=== PATIENT | female | born 1940 | race African-American/Black ===

== ENCOUNTER 2018-02-28 15:57 | Emergency (ER) | payer MEDICARE, MEDICAID ==
[~2018-02-28] VITALS: Ht 170.2 cm; Wt 50.8 kg
[2018-02-28 16:13] VITALS: BP 147/91
[2018-02-28] MEDS ORDERED: Tetanus/Diptheria/Pertussis Vaccine 0.5ml Syr IM ONE (16:30)
[2018-02-28] MEDS ORDERED: TYLENOL EXTRA500 MG ORAL (17:29)
[2018-02-28] MEDS ORDERED: Bacitracin Oint UD TOPIC ONE (17:30)
[2018-02-28 17:40] VITALS: BP 157/82
--- NOTE | 2018-02-28 18:03 | Emergency Room Report ---
History of Present Illness General Chief Complaint: Edema Source: Patient Present Illness HPI 77-year-old female presents ED for evaluation. Patient states one week ago she tripped and fell at home landing on her right knee. States is an abrasion to her right knee. States there is now swelling to her right knee and right ankle. Denies any pain. States she is able to walk. Tetanus unknown. Denies any other injuries. Denies hitting her head or LOC. No other aggravating relieving factors. Denies any other associated symptoms Allergies: Coded Allergies: IODINE (Verified Allergy, Unknown, 02/28/18) PSEUDOEPHEDRINE (Verified Allergy, Unknown, 02/28/18) TRIPROLIDINE (Verified Allergy, Unknown, 02/28/18) Patient History Past Medical History: DM, HTN, other - breast ca Past Surgical History: none Pertinent Family History: none Social History: Denies: smoking, alcohol use, drug use Now: No Immunizations: UTD Reviewed Nursing Documentation: PMH: Agreed; PSxH: Agreed Nursing Documentation-PMH Past Medical History: No History, Except For Hx Hypertension: Yes Hx Diabetes: Yes Hx Cancer: Yes - History of breast CA Review of Systems All Other Systems: negative except mentioned in HPI Physical Exam Vital Signs Date Time Temp Pulse Resp B/P (MAP) Pulse Ox O2 Delivery O2 Flow Rate FiO2 02/28/18 16:03 98.6 94 18 147/91 96 Room Air 98.6 Sp02 EP Interpretation: reviewed, normal General Appearance: no apparent distress, alert, GCS 15, non-toxic Head: normocephalic, atraumatic Eyes: bilateral eye normal inspection, bilateral eye PERRL ENT: hearing grossly normal, normal pharynx, no angioedema, normal voice Neck: full range of motion, supple/symm/no masses Respiratory: chest non-tender, lungs clear, normal breath sounds, speaking full sentences Cardiovascular #1: regular rate, rhythm, no edema Cardiovascular #2: 2+ carotid (R), 2+ carotid (L), 2+ radial (R), 2+ radial (L) , 2+ dorsalis pedis (R), 2+ dorsalis pedis (L) Gastrointestinal: normal bowel sounds, non tender, soft, non-distended, no guarding, no rebound Rectal: deferred Genitourinary: normal inspection, no CVA tenderness Musculoskeletal: back normal, gait/station normal, normal range of motion, non- tender, swelling - R knee, R ankle Neurologic: alert, oriented x3, responsive, motor strength/tone normal, sensory intact, speech normal Psychiatric: judgement/insight normal, memory normal, mood/affect normal, no suicidal/homicidal ideation Reflexes: 3+ bicep (R), 3+ bicep (L), 3+ tricep (R), 3+ tricep (L), 3+ knee (R) , 3+ knee (L) Skin: normal color, no rash, warm/dry, well hydrated, abrasions - R knee Lymphatic: no adenopathy Procedures Splinting Splinting : Consent: Verbal Pre-Made Type: YEHUDA wrap Pre-Proc Neuro Vasc Exam: normal Post-Proc Neuro Vasc Exam: normal Patient Tolerated: Well Complications: None Medical Decision Making Diagnostic Impression: Primary Impression: Knee injury Qualified Codes: S89.91XA - Unspecified injury of right lower leg, initial encounter Additional Impression: Right ankle injury Qualified Codes: S99.911A - Unspecified injury of right ankle, initial encounter ER Course Hospital Course 77-year-old F presents to ED complaining of R knee and ankle swelling s/p fall x 1 week. no pain Differential diagnoses include: Fracture, dislocation, sprain, contusion Clinical course Patient placed on stretcher. After initial history and physical, I ordered TDAP , xrays of R ankle/foot/knee X-rays of right knee show significant osteoarthritis. No fracture. [facility] read possible nondisplaced fracture proximal fifth phalanx on right foot. Patient has no tenderness in that area. Full range of motion. There is no erythema or induration suggestive of cellulitis. There is no calf tenderness or swelling suggestive of DVT. Discussed findings with patient. Bacitracin applied. Placed in Yehuda wrap. Recommend ice and elevation at home. Close follow-up with PMD Diagnosis - knee injury, R ankle injury Stable and discharged to home with prescription for Tylenol. apply ice, keep elevated. weight bear as tolerated. Followup with PMD. Return to ED if symptoms recur or worsen Other X-Ray Diagnostic Results Other X-Ray Diagnostic Results #1: X-Ray ordered: R knee # of Views/Limited Vs Complete: 3 View Indication: Pain EP Interpretation: Yes Interpretation: no dislocation, no soft tissue swelling, no fractures, other - DJD Impression: No acute disease Electronically Signed by: Electronically signed by Efrem Murray MD Other X-Ray Diagnostic Results #2: X-Ray ordered: R ankle # of Views/Limited Vs Complete: 3 View Indication: Swelling EP Interpretation: Yes Interpretation: no dislocation, no fractures, nonspecific bowel gas, other - soft tissue swelling Impression: No acute disease Electronically Signed by: Electronically signed by Efrem Murray MD Other X-Ray Diagnostic Results #3: X-Ray ordered: R foot # of Views/Limited Vs Complete: 3 View Indication: Pain EP Interpretation: Yes Interpretation: no dislocation, no fractures, other - soft tissue swelling Impression: No acute disease Electronically Signed by: Electronically signed by Efrem Murray MD Last Vital Signs Date Time Temp Pulse Resp B/P (MAP) Pulse Ox O2 Delivery O2 Flow Rate FiO2 02/28/18 17:40 98.0 92 20 157/82 100 Room Air 98.6 Status: improved Disposition: HOME, SELF-CARE Condition: Stable Scripts Acetaminophen* (TYLENOL EXTRA STRENGTH*) 500 Mg Tablet 500 MG ORAL Q8H PRN for Prn Headache/Temp > 101, #30 TAB 0 Refills Prov: Efrem Murray MD 02/28/18 Patient Instructions: Edema, Knee Pain, [id number] Additional Instructions: apply ice, elevate, take tylenol as needed for pain. followup with PMD. Efrem Murray MD Feb 28, 2018 18:03
--- NOTE | 2018-03-02 08:51 | Diagnostic Imaging Report ---
Indication: Pain and swelling Technique: 3 views of the right knee Comparison: None Findings: There is medial compartment degenerative joint space narrowing. There is equivocally minimal suprapatellar effusion. There is patellofemoral compartment degenerative joint space narrowing. There are likely loose bodies in the anterior joint space. No acute fractures. No dislocations. There are medial and lateral osteophytes. The bones are osteoporotic Impression: Degenerative changes as described. No acute bony trauma Probable loose bodies Equivocal minimal joint effusion This agrees with the preliminary interpretation provided overnight by [facility] teleradiology service.
--- NOTE | 2018-03-02 08:52 | Diagnostic Imaging Report ---
Indication: Pain and swelling Technique: 3 views of the right ankle Comparison: none Findings: Bones are osteoporotic. No acute fractures. No dislocations. There is minimal swelling over the lateral malleolus. The joint spaces are preserved. There are vascular calcifications Impression: No acute bony trauma This agrees with the preliminary interpretation provided overnight by [facility] telerad[facility] service.
--- NOTE | 2018-03-02 08:57 | Diagnostic Imaging Report ---
. Indication: Pain and swelling Technique: 3 views right foot Comparison: none Findings: There is mild irregularity of the base of the fourth proximal phalanx, may be degenerative or on the basis of old injury, does not appear to be acute. Equivocal lucency through the base of the fifth proximal phalanx on the AP view, not visible on other views, could represent a subtle nondisplaced fracture. No definite acute fractures otherwise. No dislocations. There is hallux valgus, bunion formation, and metatarsus adductus. Impression: Questionable fracture of the base of the fifth proximal phalanx. Correlate with clinical findings This agrees with the preliminary interpretation provided overnight by [facility] teleradiology service.
== END 2018-02-28 17:40 | disposition home or self-care (01) ==
LOC: EMR 16:51
DX: S89.91XA Unspecified injury of right lower leg, initial encounter (principal); S99.911A Unspecified injury of right ankle, initial encounter; E11.9 Type 2 diabetes mellitus without complications; I10 Essential (primary) hypertension; M17.10 Unilateral primary osteoarthritis, unspecified knee; Z23 Encounter for immunization; Z91.048 Other nonmedicinal substance allergy status; Z88.3 Allergy status to other anti-infective agents; Z88.8 Allergy status to other drugs, medicaments and biological substances; Z85.3 Personal history of malignant neoplasm of breast
CPT/HCPCS: 90471; 90715; 99284

== ENCOUNTER 2019-05-29 07:08 | Inpatient (IN) | payer MEDICARE, MEDICAID ==
[2019-05-29] VITALS (7 sets, daily range): BP systolic 120–215; BP diastolic 72–103
[~2019-05-29] VITALS: Ht 170.2 cm; Wt 69.4 kg
[~2019-05-29 07:08] MED LIST: TYLENOL EXTRA500 MG ORAL
[2019-05-29] MEDS ORDERED: Nitroglycerin 2% oint pkt TOPIC ONE (07:30)
--- NOTE | 2019-05-29 07:30 | Emergency Room Report ---
History of Present Illness General Chief Complaint: Chest Pain Source: Patient, Medical Record Present Illness HPI 78-year-old female history of breast cancer in remissionafter mastectomy, history of hypertension, diabetes, unknown family history of cardiac disease presents with left-sided chest discomfort no aggravating relieving factors severity is mild, constant no dyspnea on exertion, she does feel mildly short of breath, no diaphoresis no nausea no vomiting patient has not had a recent stress test, or cath, patient presents for continued chest pain patient presents for evaluation Allergies: Coded Allergies: IODINE (Verified Allergy, Unknown, 02/28/18) PSEUDOEPHEDRINE (Verified Allergy, Unknown, 02/28/18) TRIPROLIDINE (Verified Allergy, Unknown, 02/28/18) Patient History Past Medical History: see triage record Reviewed Nursing Documentation: PMH: Agreed; PSxH: Agreed Nursing Documentation-PMH Past Medical History: No History, Except For Hx Hypertension: Yes Hx Diabetes: Yes Hx Cancer: Yes - History of breast CA Review of Systems All Other Systems: negative except mentioned in HPI Physical Exam Vital Signs Date Time Temp Pulse Resp B/P (MAP) Pulse Ox O2 Delivery O2 Flow Rate FiO2 05/29/19 07:13 98.4 99 18 223/109 (147) 100 Room Air Sp02 EP Interpretation: reviewed, normal General Appearance: well appearing, no apparent distress, alert Head: normocephalic, atraumatic Eyes: bilateral eye PERRL, bilateral eye EOMI ENT: uvula midline, moist mucus membranes Neck: supple, thyroid normal, supple/symm/no masses Respiratory: lungs clear, no respiratory distress, no retraction, no accessory muscle use Cardiovascular #1: normal peripheral pulses, regular rate, rhythm, no edema, no gallop, no murmur Gastrointestinal: non tender, soft, no guarding, no rebound Musculoskeletal: normal inspection Neurologic: alert, oriented x3 Psychiatric: mood/affect normal Skin: no rash, warm/dry Medical Decision Making Diagnostic Impression: Primary Impression: Chest pain Qualified Codes: R07.9 - Chest pain, unspecified ER Course 78-year-old female presents with chest pain concerning for possible ACS differential diagnosis includes pneumonia, acs, dissection Patient given aspirin, and nitro with improvement in pain Will admit patient for ACS work-up to Dr. Liang 9:28AM Laboratory Tests Test 05/29/19 07:30 White Blood Count 5.3 K/UL (4.8-10.8) Red Blood Count 4.68 M/UL (4.20-5.40) Hemoglobin 13.5 G/DL (12.0-16.0) Hematocrit 41.2 % (37.0-47.0) Mean Corpuscular Volume 88 FL (80-99) Mean Corpuscular Hemoglobin 28.8 PG (27.0-31.0) Mean Corpuscular Hemoglobin Concent 32.6 G/DL (32.0-36.0) Red Cell Distribution Width 11.9 % (11.6-14.8) Platelet Count 277 K/UL (150-450) Mean Platelet Volume 6.2 FL (6.5-10.1) L Neutrophils (%) (Auto) 64.2 % (45.0-75.0) Lymphocytes (%) (Auto) 21.7 % (20.0-45.0) Monocytes (%) (Auto) 8.1 % (1.0-10.0) Eosinophils (%) (Auto) 4.7 % (0.0-3.0) H Basophils (%) (Auto) 1.3 % (0.0-2.0) Prothrombin Time 10.3 SEC (9.30-11.50) Prothrombin Time INR 1.0 (0.9-1.1) PTT 26 SEC (23-33) Sodium Level 140 MMOL/L (136-145) Potassium Level 3.7 MMOL/L (3.5-5.1) Chloride Level 104 MMOL/L (98-107) Carbon Dioxide Level 34 MMOL/L (21-32) H Anion Gap 3 mmol/L (5-15) L Blood Urea Nitrogen 10 mg/dL (7-18) Creatinine 0.7 MG/DL (0.55-1.30) Estimate Glomerular Filtration Rate mL/min (>60) Glucose Level 144 MG/DL (74-106) H Calcium Level 8.8 MG/DL (8.5-10.1) Total Bilirubin 0.3 MG/DL (0.2-1.0) Aspartate Amino Transferase (AST) 17 U/L (15-37) Alanine Aminotransferase (ALT) 19 U/L (12-78) Alkaline Phosphatase 66 U/L (46-116) Troponin I 0.024 ng/mL (0.000-0.056) Pro-B-Type Natriuretic Peptide 328 pg/mL (0-125) H Total Protein 7.8 G/DL (6.4-8.2) Albumin 3.3 G/DL (3.4-5.0) L Globulin 4.5 g/dL Albumin/Globulin Ratio 0.7 (1.0-2.7) L Lipase 225 U/L (73-393) EKG Diagnostic Results EKG Time: 07:19 EP Interpretation: NSR, rate 78, QTc 446, no acute ST elevations, left axis deviation Rhythm Strip Diag. Results Rhythm Strip Time: 07:30 EP Interpretation: yes Rate: 71 Rhythm: NSR, no PVC's, no ectopy Chest X-Ray Diagnostic Results Chest X-Ray Diagnostic Results : Chest X-Ray Ordered: Yes # of Views/Limited/Complete: 1 View Indication: Chest Pain EP Interpretation: Yes Interpretation: no consolidation, no effusion, no pneumothorax, no acute cardiopulmonary disease Impression: No acute disease Electronically Signed by: Seferino Chowdhury MD Last Vital Signs Date Time Temp Pulse Resp B/P (MAP) Pulse Ox O2 Delivery O2 Flow Rate FiO2 05/29/19 07:13 98.4 99 18 223/109 (147) 100 Room Air Disposition: ADMITTED INPATIENT Condition: Stable Referrals: [facility],REFERRING (PCP) Seferino Chowdhury MD May 29, 2019 07:30
[2019-05-29] MEDS ORDERED: TRESIBA100 UNIT/1 SQ (07:39)
[2019-05-29] MEDS ORDERED: TRAMADOL HCL50 MG ORAL (07:39)
[2019-05-29] MEDS ORDERED: HUMALOG100 UNIT/4 SUBQ (07:39)
[2019-05-29] MEDS ORDERED: ANASTROZOLE1 MG PO (07:39)
[2019-05-29] MEDS ORDERED: ASPIRIN EC325 MG ORAL (07:39)
[2019-05-29] MEDS ORDERED: BUSPIRONE HCL5 M1 ORAL (07:39)
[2019-05-29] MEDS ORDERED: AMLOD-VALSA-HC1 EAC4 PO (07:39)
[2019-05-29] MEDS ORDERED: BACLOFEN10 MG ORAL (07:39)
[2019-05-29 07:46] LABS: BASOPHILS % (AUTO) 1.3 % (0.0-2.0); EOSINOPHILS % (AUTO) 4.7 % (0.0-3.0); HEMATOCRIT 41.2 % (37.0-47.0); HEMOGLOBIN 13.5 G/DL (12.0-16.0); LYMPHOCYTES % (AUTO) 21.7 % (20.0-45.0); MEAN CORPUSCULAR VOLUME 88 FL (80-99); MONOCYTES % (AUTO) 8.1 % (1.0-10.0); NEUTROPHILS % (AUTO) 64.2 % (45.0-75.0); PLATELET COUNT 277 K/UL (150-450); RED BLOOD COUNT 4.68 M/UL (4.20-5.40); RED CELL DISTRIBUTION WIDTH 11.9 % (11.6-14.8); WHITE BLOOD COUNT 5.3 K/UL (4.8-10.8)
--- NOTE | 2019-05-29 07:51 | Diagnostic Imaging Report ---
EXAM: XR Chest, 1 View CLINICAL HISTORY: CP TECHNIQUE: Frontal view of the chest. COMPARISON: No relevant prior studies available. FINDINGS: Lungs: Bibasilar atelectasis. Mild pulmonary vascular congestion. Pleural space: Unremarkable. No pneumothorax. Heart: Heart size appears enlarged, possibly exaggerated due to technique. Mediastinum: Unremarkable. Bones/joints: Degenerative changes of the spine. IMPRESSION: 1. Heart size appears enlarged, possibly exaggerated due to technique. 2. Bibasilar atelectasis. Mild pulmonary vascular congestion.
[2019-05-29] MEDS ORDERED: Lexiscan 0.4mg/5ml syringe IV ONE (08:00)
[2019-05-29] MEDS ORDERED: Losartan 25mg tab ORAL ONE (08:00)
[2019-05-29 08:06] LABS: ANION GAP 3 mmol/L (5-15); BLOOD UREA NITROGEN 10 mg/dL (7-18); CALCIUM 8.8 MG/DL (8.5-10.1); CARBON DIOXIDE 34 MMOL/L (21-32); CHLORIDE 104 MMOL/L (98-107); CREATININE 0.7 MG/DL (0.55-1.30); POTASSIUM 3.7 MMOL/L (3.5-5.1); SODIUM 140 MMOL/L (136-145)
[2019-05-29 08:16] LABS: ALANINE AMINOTRANSFERASE 19 U/L (12-78); ALBUMIN 3.3 G/DL (3.4-5.0); ALBUMIN/GLOBULIN RATIO 0.7 (1.0-2.7); ALKALINE PHOSPHATASE 66 U/L (46-116); ASPARTATE AMINO TRANSFERASE 17 U/L (15-37); BILIRUBIN,TOTAL 0.3 MG/DL (0.2-1.0)
[2019-05-29] MEDS ORDERED: Labetalol 5mg/ml 20ml vial IV ONE (09:30)
[2019-05-29] MEDS ORDERED: traMADol 50mg tab ORAL PRN (11:30)
[2019-05-29] MEDS: NovoLOG Insulin Flexpen SUBQ SCH ×3 (12:09→20:16)
--- NOTE | 2019-05-29 15:45 | History and Physical Report ---
DATE OF ADMISSION: 05/29/2019 HISTORY OF PRESENT ILLNESS: This is a 78-year-old female with a history of breast cancer status post mastectomy in 2013. She came to the hospital with left-sided chest discomfort. On my questioning, the patient is a very poor historian and she obtains her history from her daughter who is at bedside. She denies any diaphoresis. No nausea. No emesis. She states she has mild discomfort which started yesterday. ALLERGIES: Iodine, pseudoephedrine, triprolidine. PAST MEDICAL HISTORY: Notable for hypertension, diabetes mellitus, breast CA status post mastectomy. HOME MEDICATIONS: Reviewed and reconciled in the chart. REVIEW OF SYSTEMS: Denies any headaches, hematemesis, melena, or hematochezia. PHYSICAL EXAMINATION: GENERAL: Reveals an elderly female. HEENT: Unremarkable. LUNGS: Clear breath sounds bilaterally with normal heart sounds. ABDOMEN: Soft. EXTREMITIES: There is no edema. NEUROLOGIC: Nonfocal. VITAL SIGNS: Blood pressure 160/100, heart rate 84, respiratory rate , afebrile. LABORATORY AND DIAGNOSTIC DATA: CBC and BMP is unremarkable except for glucose of 144, creatinine of 0.7. Troponin 0.02. Coags are negative. X-ray chest per report is negative as well except for atelectasis. IMPRESSION: 1. Chest pain, atypical. 2. Troponin leak. 3. Hypertension, uncontrolled. 4. History of breast CA . DISCUSSION: Continue home medications including medicines for diabetes. We will add further antihypertensives. Consult Cardiology. We will follow carefully, serial troponins. Charles Liang M.D. DR: Laura JOB#: [id number] CC:
[2019-05-29] MEDS: Heparin 5000 units/ml inj SUBQ SCH (17:10)
[2019-05-29] MEDS ORDERED: BusPIRone 5mg Tab ORAL PRN (18:00)
[2019-05-29] MEDS ORDERED: BusPIRone 5mg Tab ORAL SCH (18:00)
[2019-05-29] MEDS ORDERED: Lexiscan 0.4mg/5ml syringe IV PRN (21:30)
[2019-05-29 22:46] LABS: ALANINE AMINOTRANSFERASE 16 U/L (12-78); ALBUMIN 2.6 G/DL (3.4-5.0); ALBUMIN/GLOBULIN RATIO 0.7 (1.0-2.7); ALKALINE PHOSPHATASE 58 U/L (46-116); ANION GAP 7 mmol/L (5-15); ASPARTATE AMINO TRANSFERASE 15 U/L (15-37); BILIRUBIN,TOTAL 0.4 MG/DL (0.2-1.0); BLOOD UREA NITROGEN 11 mg/dL (7-18); CALCIUM 8.3 MG/DL (8.5-10.1); CARBON DIOXIDE 27 MMOL/L (21-32); CHLORIDE 102 MMOL/L (98-107); CREATININE 0.8 MG/DL (0.55-1.30); POTASSIUM 3.9 MMOL/L (3.5-5.1); SODIUM 136 MMOL/L (136-145)
--- NOTE | 2019-05-29 23:30 | Consultation ---
DATE OF CONSULTATION: 05/29/2019 CARDIOLOGY CONSULTATION CONSULTING PHYSICIAN: Radames Valencia M.D. REQUESTING PHYSICIAN: Charles Liang M.D. REASON FOR CONSULTATION: Chest pain. HISTORY OF PRESENT ILLNESS: This is a 78-year-old female with multiple risk factors for accelerated coronary artery disease. She was awakened from sleep around 5 a.m. with discomfort in her chest. She described as a heavy pain, but cannot be more specific. She does not recall any previous such symptoms and is unaware of any history of prior heart attack. The patient did not have any diaphoresis, nausea, or vomiting, but did feel some shortness of breath. She was seen in the emergency room and notes that the pain had to her recollection resolved prior to arrival. PAST MEDICAL HISTORY: Includes hypertension, type 2 diabetes mellitus, hyperlipidemia, and breast cancer with left mastectomy. MEDICATIONS: Reviewed and reconciled. ALLERGIES: Include iodine, pseudoephedrine, and triprolidine. FAMILY HISTORY: Noncontributory. SOCIAL HISTORY: Negative for smoking, alcohol, or substance abuse. REVIEW OF SYSTEMS: No fevers or chills. No recent upper respiratory infection. No history of asthma or abnormal blood clotting. No history of seizure or stroke. Her diabetes is managed with diet and oral pills. She takes a cholesterol pill as well. There is no history of thyroid disease. She has not noted any change in bowel habits. She denies dyspepsia or reflux, and is unaware of any difficulty voiding or any dysuria. She does not recall when her mastectomy exactly was, but "many years ago." PHYSICAL EXAMINATION: VITAL SIGNS: Blood pressure 179/90 in the emergency room and presently 120/72, heart rate 72, respiratory rate 18, and afebrile. HEENT: Conjunctivae are pink. Sclerae are anicteric. Oropharynx clear. No xanthoma. NECK: Supple. No jugular venous distention or bruits. Carotid upstrokes are without delay. BREASTS: Left mastectomy site clean and dry with no adenopathy. LUNGS: Clear. CARDIAC: Regular rhythm and rate. Normal S1 and S2 with a fourth heart sound. ABDOMEN: Soft and nontender. EXTREMITIES: Good pulses. No edema. NEUROLOGIC: Nonfocal. LABORATORY AND DIAGNOSTIC DATA: White count 5.3 and hemoglobin 13.5. Potassium 3.7, BUN 10, creatinine 0.7, and glucose 144. Pro-natriuretic peptide 328. Albumin 3.3. Troponin #1 0.024, troponin #2 0.036. Chest x-ray with no acute process. EKG with sinus rhythm, 71 beats per minute, nonspecific ST change, and no acute abnormality. IMPRESSION: 1. Chest pain episode. 2. Minimally elevated troponin levels, but did not reach threshold for infarction. 3. Possible acute coronary syndrome. 4. Hypertensive heart disease with elevated blood pressure on presentation, now well controlled. 5. Mildly elevated natriuretic peptide assay suggesting diastolic dysfunction due to hypertensive heart disease. 6. Minimal protein-calorie malnutrition. 7. Type 2 diabetes mellitus with minimally elevated glucose level. PLAN: 1. Cardiac monitoring. 2. Followup troponin level. 3. Lipid panel. 4. Antiplatelet therapy. 5. Topical nitrates. 6. Noninvasive assessment of coronary flow reserve. Recurring chest pain will be treated with beta-blockade EKG to identify ischemia. Radames Valencia M.D. DR: SARAI JOB#: [id number] CC:
[2019-05-30] VITALS: BP 123/74
[2019-05-30 04:00] VITALS: BP 154/71
[2019-05-30] MEDS: NovoLOG Insulin Flexpen SUBQ SCH ×3 (06:30→16:20)
[2019-05-30 08:00] VITALS: BP_SYST 146; BP_DIAS 56; BP_DIAS 90
[2019-05-30 08:21] LABS: CHOLESTEROL 232 MG/DL (< 200); HDL CHOLESTEROL 81 MG/DL (40-60); TRIGLYCERIDES 52 MG/DL (30-150)
[2019-05-30] MEDS ORDERED: VALSARTAN 320 MG ORAL SCH (09:00)
[2019-05-30] MEDS ORDERED: TRESIBA SUBQ SCH (09:00)
[2019-05-30] MEDS ORDERED: VIT D2 1.25 MG ORAL SCH (09:00)
[2019-05-30] MEDS ORDERED: Aspirin EC 325mg tab ORAL SCH (09:00)
[2019-05-30] MEDS ORDERED: Anastrazole 1mg tab ORAL SCH (09:00)
[2019-05-30] MEDS: Heparin 5000 units/ml inj SUBQ SCH ×2 (09:20→17:28)
--- NOTE | 2019-05-30 09:22 | Pulmonology Progress Note ---
Assessment/Plan Assessment/Plan IMPRESSION: 1. Chest pain, atypical. 2. Troponin leak. 3. Hypertension, uncontrolled. 4. History of breast CA . DISCUSSION: Continue home medications including medicines for diabetes. BP better controlled. Seen by Cardiology. Stress test today. Subjective Interval Events: Nopne new Constitutional: Reports: no symptoms HEENT: Repors: no symptoms Respiratory: Reports: no symptoms Cardiovascular: Reports: no symptoms Gastrointestinal/Abdominal: Reports: no symptoms Genitourinary: Reports: no symptoms Allergies: Coded Allergies: IODINE (Verified Allergy, Unknown, 02/28/18) PSEUDOEPHEDRINE (Verified Allergy, Unknown, 02/28/18) TRIPROLIDINE (Verified Allergy, Unknown, 02/28/18) Objective Last 24 Hour Vital Signs Date Time Temp Pulse Resp B/P (MAP) Pulse Ox O2 Delivery O2 Flow Rate FiO2 05/30/19 08:06 Room Air 05/30/19 08:00 98.4 72 20 146/90 (108) 97 05/30/19 04:00 71 05/30/19 04:00 98.1 60 16 154/71 (98) 96 05/30/19 00:00 72 05/30/19 00:00 97.9 65 17 123/74 (90) 97 05/29/19 21:00 Room Air 05/29/19 20:00 97.7 60 16 120/78 (92) 96 05/29/19 20:00 68 05/29/19 16:00 73 05/29/19 16:00 98.2 72 18 120/72 (88) 97 05/29/19 13:39 Room Air 05/29/19 12:00 97.0 80 18 157/93 (114) 98 05/29/19 12:00 81 05/29/19 11:55 157/93 05/29/19 11:00 97.5 83 18 179/90 (119) 98 83 05/29/19 10:59 77 05/29/19 10:20 98.1 80 18 172/82 98 Room Air 05/29/19 09:55 98.1 75 15 172/81 100 Room Air 05/29/19 09:38 78 233/133 05/29/19 09:37 230/133 Intake and Output 05/29/19 05/30/19 18:59 06:59 Intake Total 315 ml 600 ml Balance 315 ml 600 ml Intake Oral 315 ml 600 ml # Voids 2 4 # Bowel Movements 1 General Appearance: no acute distress HEENT: normocephalic Respiratory/Chest: lungs clear Cardiovascular: regular rhythm Abdomen: normal bowel sounds Laboratory Tests 05/29/19 15:05: Troponin I 0.036 05/29/19 22:00: Sodium Level 136, Potassium Level 3.9, Chloride Level 102, Carbon Dioxide Level 27, Anion Gap 7, Blood Urea Nitrogen 11, Creatinine 0.8, Estimat Glomerular Filtration Rate , Glucose Level 390#H, Calcium Level 8.3L, Total Bilirubin 0.4, Aspartate Amino Transf (AST/SGOT) 15, Alanine Aminotransferase (ALT/SGPT) 16, Alkaline Phosphatase 58, Total Protein 6.5, Albumin 2.6L, Globulin 3.9, Albumin/ Globulin Ratio 0.7L, Thyroid Stimulating Hormone (TSH) 1.167 05/30/19 06:49: Troponin I 0.022, Triglycerides Level 52, Cholesterol Level 232H, LDL Cholesterol 131H, HDL Cholesterol 81H, Cholesterol/HDL Ratio 2.9L Current Medications Medications (Trade) Dose Ordered Sig/Magaly Route PRN Reason Start Time Stop Time Status Last Admin Dose Admin Amlodipine Besylate (Norvasc) 5 mg DAILY ORAL 05/30/19 09:00 06/29/19 08:59 Anastrozole (Arimidex) 1 mg DAILY ORAL 05/30/19 09:00 06/29/19 08:59 Aspirin (Ecotrin) 325 mg DAILY ORAL 05/30/19 09:00 06/29/19 08:59 Baclofen (Lioresal) 10 mg Q8H PRN ORAL Muscle Spasm 05/29/19 15:15 06/28/19 15:14 Buspirone HCl (Buspar) 5 mg Q8H PRN ORAL For Pain 05/29/19 18:00 06/28/19 17:59 Clonidine HCl (Catapres Tab) 0.1 mg Q4H PRN ORAL For High Blood Pressure 05/29/19 11:15 06/28/19 11:14 05/29/19 11:55 Dextrose (Dextrose 50%) 25 ml Q30M PRN IV Hypoglycemia 05/29/19 11:15 06/28/19 11:14 Dextrose (Dextrose 50%) 50 ml Q30M PRN IV Hypoglycemia 05/29/19 11:15 06/28/19 11:14 EZETIMIBE (Zetia) 10 mg BEDTIME ORAL 05/29/19 21:00 06/28/19 20:59 05/29/19 20:14 Heparin Sodium (Porcine) (Heparin 5000 units/ml) 5,000 units BID SUBQ 05/29/19 18:00 06/28/19 17:59 05/29/19 17:10 Insulin Aspart (NovoLOG) BEFORE MEALS AND HS SUBQ 05/29/19 11:30 06/28/19 11:29 05/30/19 06:30 Patient Own Medication (Patient's Own Med) 1 ea 2XW ORAL 05/30/19 09:00 06/29/19 08:59 Patient Own Medication (Patient's Own Med) 1 ea DAILY ORAL 05/30/19 09:00 06/29/19 08:59 Patient Own Medication (Patient's Own Med) 1 ea DAILY SUBQ 05/30/19 09:00 06/29/19 08:59 Regadenoson (Lexiscan) 0.4 mg ONCE PRN IV STRESS TEST 05/29/19 21:30 05/31/19 21:29 Tramadol HCl (Ultram) 50 mg Q6H PRN ORAL For Pain 05/29/19 11:30 06/05/19 11:29 Charles Liang MD May 30, 2019 09:22
[2019-05-30 12:00] VITALS: BP 158/83
--- NOTE | 2019-05-30 15:13 | Diagnostic Imaging Report ---
Indication: chest pain Technique: The study was conducted under the supervision of a database dba. lexiscan (regadenoson) infusion over 10 seconds followed by intravenous administration of 32.6 mCi of technetium 99m Myoview was performed. Three plane SPECT imaging of the heart was then performed. A resting study was performed as part of the one-day protocol with 10.5 mCi of technetium 99m myoview injected intravenously at that time. Three plane SPECT imaging of the heart was obtained. Comparison: None Clinical data: 1. Clinical response: Non ischemic 2. Electrocardiographic response: Non ischemic Findings: The myocardial perfusion scan demonstrates no definite fixed or reversible perfusion defects. There is attenuation of the inferior wall suspected. LVEF estimated at 67% IMPRESSION: Negative myocardial perfusion scan
[2019-05-30 16:00] VITALS: BP 124/65
--- NOTE | 2019-05-30 19:21 | Cardiology Report ---
APPROVED REPORT EKG Measurement Heart [id number] Normal sinus rhythm Minimal voltage criteria for LVH, may be normal variant Septal infarct, age undetermined Abnormal ECG
--- NOTE | 2019-05-30 23:45 | Progress Note ---
DATE: 05/30/2019 CARDIOLOGY PROGRESS NOTE SUBJECTIVE: The patient remains comfortable. She has no chest pain. No shortness of breath. She completed a myocardial perfusion scan today without difficulty. The study revealed normal perfusion, normal ejection fraction, and low likelihood for any flow-limiting coronary disease. OBJECTIVE: VITAL SIGNS: Blood pressure 124/65, pulse 54, respirations 18, and afebrile. Heart rates 54 to 91. Monitor, sinus rhythm. NECK: Jugular venous pressure normal. LUNGS: Clear. CARDIAC: Regular. Normal S1, S2 with no new murmur. ABDOMEN: Soft. EXTREMITIES: There is no edema. LABORATORY DATA: Total cholesterol 232, HDL 81, LDL 131. Troponins remained negative. Glucose 390. IMPRESSION: 1. Microvascular angina. No evidence of flow-limiting coronary artery disease. 2. Hypertensive heart disease with adequate blood pressure control. 3. lipid panel with high HDL level. 4. Type 2 diabetes mellitus with hyperglycemia today. 5. Diastolic dysfunction with no signs of acute congestive heart failure. PLAN: 1. Stable for discharge and outpatient followup. 2. Cardiovascular regimen is appropriate at this time. 3. Maintain current regimen. Radames Valencia M.D. DR: JOSE JOB#: [id number] CC:
--- NOTE | 2019-05-31 10:56 | Discharge Summary ---
Discharge Summary Discharge Summary _ DATE OF ADMISSION: 05/29/2019 DATE OF DISCHARGE: 05/30/2019 DISCHARGED BY: Dr Liang REASON FOR ADMISSION: 78 years old female with past medical history of breast cancer, status post mastectomy, currently in remission, hypertension, diabetes mellitus, unknown family history of cardiac disease, presented with left-sided chest discomfort. Chest discomfort reported to be mild , but constant. She denied dyspnea on exertion. She reported mild shortness of breath. No diaphoresis. No nausea or vomiting. Blood pressure was significantly elevated 223/109. Otherwise patient was afebrile , pulse oximetry was stable on room air. Laboratory work-up revealed no leukocytosis , stable hemoglobin , hematocrit and platelet count. Stable electrolytes and renal parameters. Glucose 144. Troponin 0.024. pro BNP 328. Stable LFT and lipase. EKG revealed sinus rhythm , no acute ischemic changes. Chest x-ray demonstrated bibasilar atelectasis, mild pulmonary vascular congestion. In emergency department patient received aspirin and nitroglycerin with improvement in pain and admitted to telemetry floor for ACS work-up. CONSULTANTS: auger press operator [facility] COURSE: Patient admitted to telemetry floor. Serial troponin were negative. EKG revealed no acute ischemic changes. Patient was ruled out for acute CA. Lipid panel revealed elevated total cholesterol 222 , elevated LDL 131. Stable triglycerides. Patient started on Zetia. TSH was within normal limits. Patient subsequently undergone myocardial perfusion scan test which was negative. Blood pressure was managed with calcium channel sean, and clonidine was on the board for blood pressure spikes. Blood pressure stabilized prior to discharge 124/65. Blood sugar was managed with sliding scale of insulin. DVT prophylaxis provided. Per auger press operator, patient had microvascular angina with no evidence of flow- limiting coronary artery disease. Patient also had evidence of diastolic dysfunction , but no signs of acute congestive heart failure. Energy Conservation Specialist recommended to continue current cardiovascular regimen and encourage compliance with it. Due to rapid and unexpected improvement in patient condition, patient was discharged in 1 day. FINAL DIAGNOSES: Chest pain , possibly atypical Microvascular angina/no evidence of flow-limiting coronary artery disease Hypertensive heart disease with initial hypertensive urgency-resolved Hyperlipidemia Type 2 diabetes mellitus Diastolic dysfunction/no signs of acute congestive heart failure History of breast cancer DISCHARGE MEDICATIONS: See Medication Reconciliation list. DISCHARGE INSTRUCTIONS: Patient was discharged home. Follow-up with a primary care provider in 1 week. I have been assigned to dictate discharge summary for this account. I was not involved in the patient's management. Stefani Barreto NP May 31, 2019 10:56
== END 2019-05-30 18:10 | disposition home or self-care (01) | DRG 305 ==
LOC: EMR 07:27 → 2E 08:15 → EDBEDREQ 09:22 → 2E 23:46
DX: I16.0 Hypertensive urgency (principal); E46 Unspecified protein-calorie malnutrition; I20.8 Other forms of angina pectoris; R07.89 Other chest pain; I11.9 Hypertensive heart disease without heart failure; Z85.3 Personal history of malignant neoplasm of breast; Z88.8 Allergy status to other drugs, medicaments and biological substances; E11.9 Type 2 diabetes mellitus without complications; E78.5 Hyperlipidemia, unspecified; Z90.12 Acquired absence of left breast and nipple
CPT/HCPCS: 36415; 71045; 78452; 80053; 80061; 82962; 83690; 83880; 84443; 84484; 85025; 85610; 85730; 93005; 93017; 96374; 96375; 99285; J1815; J2785